=== PATIENT | male | born 1960 | race Caucasian/White ===

== ENCOUNTER 2020-11-24 21:31 | Inpatient (IN) | payer OTHER ==
[~2020-11-24] VITALS: Ht 175.3 cm; Wt 90.7 kg
--- NOTE | 2020-11-24 21:31 | NUR ---
PT AAOX4. AMBULATORY WITH STEADY GAIT. BIBPA FROM [facility] FOR MED CLEARANCE FOR GPS ADMIT; ON 5150 HOLD. COVID SWABBED, AWAITING BLOOD WORK AND URINE LAB RESULTS FOR MED CLEARANCE. PT PLACED IN BED 15 ON MONITOR AND PULSE OX. AWAITING OTHER ORDERS.
--- NOTE | 2020-11-24 21:59 | NUR ---
VINYL FLOORING INSTALLER AT BEDSIDE FOR LABS.
--- NOTE | 2020-11-24 21:59 | NUR ---
URINE COLLECTED, SENT TO LAB.
[2020-11-24 22:09] LABS: BASOPHILS # (AUTO) 0.1 /CMM (0.0-0.2); BASOPHILS % (AUTO) 0.9 % (0.0-2.0); EOSINOPHILS % (AUTO) 2.1 % (0.0-6.0); HEMATOCRIT 44 % (39-51); HEMOGLOBIN 14.7 g/dL (13.5-17.5); LYMPHOCYTES # (AUTO) 2.8 /CMM (0.8-4.8); MEAN CORPUSCULAR HGB CONC 34 g/dl (31.0-36.0); MEAN CORPUSCULAR VOLUME 90 fL (80-96); MONOCYTES # (AUTO) 0.7 /CMM (0.1-1.30); MONOCYTES % (AUTO) 10.3 % (2.0-12.0); NEUTROPHILS % (AUTO) 44.7 % (43.0-81.0); PLATELET COUNT (AUTO) 218 /CMM (150-450); RED BLOOD CELL COUNT(AUTO) 4.84 MIL/uL (4.5-6.0); WHITE BLOOD COUNT (AUTO) 6.7 K/uL (4.3-11.0)
[2020-11-24 22:16] LABS: BILIRUBIN,URINE NEGATIVE (NEGATIVE); COLOR,URINE YELLOW (YELLOW); LEUKOCYTE ESTERASE ,URINE NEGATIVE (NEGATIVE); NITRITE, URINE NEGATIVE (NEGATIVE); PROTEIN,URINE NEGATIVE (NEGATIVE); UGLUCOSE NEGATIVE (NEGATIVE); UROBILINOGEN,URINE 0.2 EU/dL (0.2)
[2020-11-24 22:19] LABS: CALCIUM, SERUM 8.9 mg/dL (8.5-10.1); CARBON DIOXIDE 32 mmol/L (21-32); CHLORIDE 104 mmol/L (98-107); CREATININE 1.1 mg/dL (0.6-1.3); GLUCOSE 114 mg/dL (74-106); POTASSIUM 4.1 mmol/L (3.5-5.1); SODIUM SERUM 139 mmol/L (136-145); UREA NITROGEN, BLOOD 11 mg/dL (7-18)
[2020-11-24 22:24] LABS: ALANINE AMINOTRANSFERASE 30 U/L (12-78); ALBUMIN 2.9 g/dL (3.4-5.0); ALCOHOL, BLOOD < 3 mg/dL (0-0); ALKALINE PHOSPHATASE 150 U/L (46-116); ASPARTATE AMINOTRANSFERASE 23 U/L (15-37); BILIRUBIN,DIRECT 0.1 mg/dL (0.0-0.2); BILIRUBIN,TOTAL 0.2 mg/dL (0.2-1.0); TOTAL PROTEIN, SERUM 6.4 g/dL (6.4-8.2)
[2020-11-24 22:25] LABS: ACETAMINOPHEN 0 ug/ml (10-30)
[2020-11-24] MEDS ORDERED: PHEN100C4 PO (23:11)
--- NOTE | 2020-11-24 23:14 | NUR ---
REPORT GIVEN FAA RN FOR ANGELA; PT WILL BE GOING TO GPS
--- NOTE | 2020-11-24 23:41 | NUR ---
Pt to [facility] via [facility].
[2020-11-25] MEDS ORDERED: ZOLPIDEM TARTRATE 5 MG TABLET PO PRN
[2020-11-25] MEDS ORDERED: MAG HYDROX/AL HYDROX/SIMETH 30 ML UDC PO PRN
[2020-11-25] MEDS ORDERED: ACETAMINOPHEN 325 MG TABLET PO PRN
[2020-11-25] MEDS ORDERED: LORAZEPAM 1 MG TABLET PO PRN
[2020-11-25] MEDS ORDERED: MAGNESIUM HYDROXIDE 30 ML UDC PO PRN
[2020-11-25] MEDS ORDERED: BLOOD SUGAR DIAGNOSTIC 1 EACH STRIP IN ONE (00:30)
[2020-11-25] MEDS ORDERED: BENA20TA9 PO (00:46)
[2020-11-25] MEDS ORDERED: TRAZ-257 PO (00:46)
[2020-11-25] MEDS ORDERED: ARIP20TA4 PO (00:46)
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
[2020-11-25 03:27] VITALS: BP 154/80
[2020-11-25 08:00] VITALS: BP 145/84
[2020-11-25] MEDS: ARIPIPRAZOLE 5 MG TABLET PO SCH (12:03)
[2020-11-25] MEDS: CITALOPRAM HYDROBROMIDE 20 MG TABLET PO SCH (12:03)
[2020-11-25] MEDS ORDERED: DIPH50CA37 MC (12:05)
--- NOTE | 2020-11-25 12:14 | NUR ---
Initial Discharge Plan: Per pt. he is currently experiencing homelessness and would like to be referred to agencies for housing. Patient is agreeable to be discharged to a half-way. SW will continue to collaborate with IDT to ensure safe& proper discharge planning.
[2020-11-25 12:26] LABS: CHOLESTEROL 183 mg/dL (<200); HDL CHOLESTEROL 72 mg/dL (40-60); LDL 92 mg/dL (0-99); TRIGLYCERIDES 112 mg/dL (30-150)
[2020-11-25 16:00] VITALS: BP 152/85
[2020-11-25] MEDS ORDERED: BENAZEPRIL HCL 20 MG TABLET PO SCH (18:00)
[2020-11-25 20:16] VITALS: BP 151/89
[2020-11-25] MEDS: TRAZODONE 50 MG TABLET PO PRN (22:27)
--- NOTE | 2020-11-25 22:28 | NUR ---
GPS RN NOTES: PATIENT REQUESTED FOR SLEEP MEDICATION D/T INSOMNIA. TRAZODONE 50MG, 2TABS/100MG GIVEN PO PRN ORDERED. WILL CONTINUE TO MONITOR.
--- NOTE | 2020-11-26 06:43 | NUR ---
GPS RN CLOSING NOTES: PATIENT IS CURRENTLY SLEEPING. SLEPT 8HOURS THIS SHIFT. NO BEHAVIORAL ISSUES THIS SHIFT. NO S/S OF DISTRESS. RESPIRATION EVEN AND UNLABORED WITH EQUAL RISE AND FALL OF THE CHEST ON ROOM AIR. ALL PATIENT CARE NEEDS HAVE BEEN MET ANTICIPATED. WILL CONTINUE TO MONITOR FOR SAFETY, MOOD AND BEHAVIOR AND ENDORSE TO AM SHIFT.
[2020-11-26 06:59] LABS: BASOPHILS % (AUTO) 0.6 % (0.0-2.0); EOSINOPHILS % (AUTO) 1.7 % (0.0-6.0); HEMATOCRIT 45 % (39-51); HEMOGLOBIN 15.2 g/dL (13.5-17.5); LYMPHOCYTES # (AUTO) 2.3 /CMM (0.8-4.8); LYMPHOCYTES % (AUTO) 36.4 % (20.0-44.0); MEAN CORPUSCULAR HGB CONC 34 g/dl (31.0-36.0); MEAN CORPUSCULAR VOLUME 90 fL (80-96); MONOCYTES # (AUTO) 0.6 /CMM (0.1-1.30); MONOCYTES % (AUTO) 9.6 % (2.0-12.0); NEUTROPHILS # (AUTO) 3.3 /CMM (1.8-8.9); NEUTROPHILS % (AUTO) 51.7 % (43.0-81.0); PLATELET COUNT (AUTO) 222 /CMM (150-450); RED BLOOD CELL COUNT(AUTO) 5.04 MIL/uL (4.5-6.0); WHITE BLOOD COUNT (AUTO) 6.4 K/uL (4.3-11.0)
[2020-11-26 07:34] LABS: CALCIUM, SERUM 9.4 mg/dL (8.5-10.1); CREATININE 0.9 mg/dL (0.6-1.3); POTASSIUM 3.8 mmol/L (3.5-5.1)
[2020-11-26 08:00] VITALS: BP 152/87
[2020-11-26] MEDS ORDERED: PHENYTOIN EXTENDED RELEASE 100 MG CAPSULE PO SCH (09:00)
[2020-11-26] MEDS: ARIPIPRAZOLE 5 MG TABLET PO SCH (10:20)
[2020-11-26] MEDS: CITALOPRAM HYDROBROMIDE 20 MG TABLET PO SCH (10:21)
[2020-11-26 16:00] VITALS: BP 145/75
[2020-11-26] MEDS: PHENYTOIN EXTENDED RELEASE 100 MG CAPSULE PO SCH (17:26)
--- NOTE | 2020-11-26 18:30 | NUR ---
keeps to self and isolative,in rm. most of day.
[2020-11-26 19:55] VITALS: BP 150/83
[2020-11-27] MEDS: TRAZODONE 50 MG TABLET PO PRN (02:26)
--- NOTE | 2020-11-27 06:36 | NUR ---
GPS RN CLOSING NOTES: PATIENT ON BED SLEEPING. SLEPT 8HOURS THIS SHIFT. NO BEHAVIORAL ISSUES THIS SHIFT. NO S/S OF DISTRESS. RESPIRATION EVEN AND UNLABORED WITH EQUAL RISE AND FALL OF THE CHEST ON ROOM AIR. ALL PATIENT CARE NEEDS MET ANTICIPATED. WILL CONTINUE TO MONITOR FOR SAFETY, MOOD AND BEHAVIOR AND ENDORSE TO AM SHIFT.
[2020-11-27 08:00] VITALS: BP 127/80
[2020-11-27] MEDS: CITALOPRAM HYDROBROMIDE 20 MG TABLET PO SCH (09:32)
[2020-11-27] MEDS: ARIPIPRAZOLE 5 MG TABLET PO SCH (09:32)
[2020-11-27] MEDS: PHENYTOIN EXTENDED RELEASE 100 MG CAPSULE PO SCH ×2 (09:32→16:14)
[2020-11-27] MEDS ORDERED: diphenhydrAMINE HCL 50 MG CAPSULE PO PRN (14:00)
[2020-11-27 16:00] VITALS: BP 122/72
[2020-11-27 20:49] VITALS: BP 127/74
--- NOTE | 2020-11-27 21:24 | NUR ---
GPS RN NOTES: PATIENT REQUESTED FOR SLEEP MEDICATION D/T INSOMNIA. BENADRYL 50MG/1CAP GIVEN PO HS ORDERED. WILL CONTINUE TO MONITOR.
--- NOTE | 2020-11-28 06:35 | NUR ---
GPS RN CLOSING NOTES: PATIENT AWAKE, LAYING COMFORTABLY IN BED. WEEKLY SKIN ASSESSMENT DONE, PICTURES TAKEN AND PLACED IN PATIENT CHART, NO NEW SKIN ISSUES AT THIS TIME. SLEPT 8HOURS THIS SHIFT. NO BEHAVIORAL ISSUES THIS SHIFT. NO S/S OF DISTRESS. DENIES ANY PAIN. RESPIRATION EVEN AND UNLABORED WITH EQUAL RISE AND FALL OF THE CHEST ON ROOM AIR. ALL PATIENT CARE NEEDS MET ANTICIPATED. WILL CONTINUE TO MONITOR FOR SAFETY, MOOD AND BEHAVIOR AND ENDORSE TO AM SHIFT.
[2020-11-28 08:00] VITALS: BP 134/83
[2020-11-28] MEDS: CITALOPRAM HYDROBROMIDE 20 MG TABLET PO SCH (08:40)
[2020-11-28] MEDS: ARIPIPRAZOLE 5 MG TABLET PO SCH (08:40)
[2020-11-28] MEDS: PHENYTOIN EXTENDED RELEASE 100 MG CAPSULE PO SCH ×2 (08:40→16:20)
--- NOTE | 2020-11-28 10:08 | NUR ---
Individual Intervention: SW met with the pt at bedside and informed him that the SW would like to discuss his discharge plan. Pt states that he is homeless but he has a contact with [facility] and mentioned a program called [facility]. SW stated that she will speak to the staff about providing him with his phone so that he can make the appropriate calls and provide the SW with the info to follow up as well.
--- NOTE | 2020-11-28 11:08 | NUR ---
UR Note: BRITTANY faxed a clinical to [facility] with attn to nurse case management to the fax number: [phone].
--- NOTE | 2020-11-28 12:09 | NUR ---
Probable Cause Hearing: Pts 5250 hold was upheld for grave disability.
--- NOTE | 2020-11-28 12:49 | NUR ---
RN NOTE: PT REFUSED DILANTIN LEVEL BLOOD DRAW. EDUCATED PT RE IMPORTANCE OF LAB RESULT. PT CONT'D TO REFUSE X 3.
[2020-11-28 16:00] VITALS: BP 130/77
[2020-11-28] MEDS: TRAZODONE 50 MG TABLET PO SCH (21:15)
[2020-11-28 21:29] VITALS: BP 106/68
[2020-11-29 08:00] VITALS: BP 122/70
[2020-11-29] MEDS: ARIPIPRAZOLE 5 MG TABLET PO SCH (08:28)
[2020-11-29] MEDS: PHENYTOIN EXTENDED RELEASE 100 MG CAPSULE PO SCH ×2 (08:28→16:45)
[2020-11-29] MEDS: CITALOPRAM HYDROBROMIDE 20 MG TABLET PO SCH (08:28)
--- NOTE | 2020-11-29 14:38 | NUR ---
UR Note: Sunshine ([phone]), casework supervisor from [facility], called the SW and stated that the pt is authorized through [facility] and stated that the SW should fax the clinicals to them.
[2020-11-29 16:00] VITALS: BP 142/77
[2020-11-29 21:11] VITALS: BP 142/71
[2020-11-29] MEDS: TRAZODONE 50 MG TABLET PO SCH (21:45)
[2020-11-30 08:00] VITALS: BP 149/83
[2020-11-30] MEDS: CITALOPRAM HYDROBROMIDE 20 MG TABLET PO SCH (08:39)
[2020-11-30] MEDS: PHENYTOIN EXTENDED RELEASE 100 MG CAPSULE PO SCH ×2 (08:39→16:33)
[2020-11-30] MEDS: ARIPIPRAZOLE 5 MG TABLET PO SCH (08:39)
--- NOTE | 2020-11-30 08:54 | NUR ---
UR Note: BRITTANY faxed a clinical to [facility] to the fax number: [phone].
[2020-11-30 16:00] VITALS: BP 131/81
[2020-11-30 20:53] VITALS: BP 132/57
[2020-11-30] MEDS: TRAZODONE 50 MG TABLET PO SCH (21:37)
[2020-12-01 08:00] VITALS: BP 112/64
--- NOTE | 2020-12-01 08:40 | NUR ---
[facility]: BRITTANY called the [facility] ([phone]) and spoke to Jake who stated that the SW should pass the same number along to the pt and inform him to conduct an evaluation with their staff. BRITTANY passed the number to the pt and provided him with a phone number to make the call.
[2020-12-01] MEDS: PHENYTOIN EXTENDED RELEASE 100 MG CAPSULE PO SCH ×2 (08:51→16:34)
[2020-12-01] MEDS: ARIPIPRAZOLE 5 MG TABLET PO SCH (08:51)
[2020-12-01] MEDS: CITALOPRAM HYDROBROMIDE 20 MG TABLET PO SCH (08:51)
--- NOTE | 2020-12-01 15:03 | NUR ---
[facility] Rivet MakerSeismograph Operator Helper: BRITTANY received a call from [facility] Rivet Maker, Destin ([phone]), who stated that he wanted to know when the pt is going to be discharged. BRITTANY stated that the pt is going to be discharged as soon as the [facility] can accommodate the pt and the disease case manager rn stated that he will contact the SW when he has an answer.
[2020-12-01 16:00] VITALS: BP 147/93
--- NOTE | 2020-12-01 16:05 | NUR ---
UR Note: Mary ([phone]), oil field caser from [place], called the SW and informed her that she wanted an update on the pts discharge plan. SW informed her about the [facility] and stated that once the bed has a bed and is accepted there the SW will discharge the pt.
--- NOTE | 2020-12-01 16:18 | NUR ---
UR Note: BRITTANY faxed a clinical to [facility] to the fax number: [phone].
[2020-12-01 19:45] VITALS: BP 148/81
[2020-12-01] MEDS: TRAZODONE 50 MG TABLET PO SCH (21:20)
[2020-12-02 08:00] VITALS: BP 119/77
[2020-12-02] MEDS: ARIPIPRAZOLE 5 MG TABLET PO SCH (09:10)
[2020-12-02] MEDS: PHENYTOIN EXTENDED RELEASE 100 MG CAPSULE PO SCH ×2 (09:10→16:05)
[2020-12-02] MEDS: CITALOPRAM HYDROBROMIDE 20 MG TABLET PO SCH (09:11)
--- NOTE | 2020-12-02 11:29 | NUR ---
UR Note: BRITTNAY received a call from Carlitos ([phone]) from [facility] who stated that a peer to peer is being requested for this pt. BRITTANY informed Dr. Rose and he conducted the peer to peer review.
--- NOTE | 2020-12-02 11:43 | NUR ---
Ida Pullman ConductorManager Urology: BRITTANY called Ida Pullman Conductor, Destin ([phone]), and left a voicemail stating that the SW wants an update regarding the pts placement as the insurance company is no longer willing to authorize since the pt is stable.
[2020-12-02 16:00] VITALS: BP 136/88
[2020-12-02 20:19] VITALS: BP 129/67
[2020-12-02] MEDS: TRAZODONE 50 MG TABLET PO SCH (21:15)
[2020-12-03 08:00] VITALS: BP 146/87
[2020-12-03] MEDS: PHENYTOIN EXTENDED RELEASE 100 MG CAPSULE PO SCH ×2 (08:11→16:05)
[2020-12-03] MEDS: ARIPIPRAZOLE 5 MG TABLET PO SCH (08:12)
[2020-12-03] MEDS: CITALOPRAM HYDROBROMIDE 20 MG TABLET PO SCH (08:12)
[2020-12-03 16:00] VITALS: BP 139/96
[2020-12-03 20:22] VITALS: BP 139/76
[2020-12-03] MEDS: TRAZODONE 50 MG TABLET PO SCH (21:04)
--- NOTE | 2020-12-04 02:29 | NUR ---
RN NOTES: ANXIETY PT. C/O FEELING ANXIOUS PACING IN ROOM ATIVAN 1 MG PO PRN GIVEN PER PT. REQUEST ,WILL CONTINUE TO MONITOR.
[2020-12-04 08:00] VITALS: BP 123/71
[2020-12-04] MEDS: CITALOPRAM HYDROBROMIDE 20 MG TABLET PO SCH (08:13)
[2020-12-04] MEDS: ARIPIPRAZOLE 5 MG TABLET PO SCH (08:13)
[2020-12-04] MEDS: PHENYTOIN EXTENDED RELEASE 100 MG CAPSULE PO SCH ×2 (08:13→16:05)
[2020-12-04 16:00] VITALS: BP 130/69
[2020-12-04 20:00] VITALS: BP 140/96
[2020-12-04] MEDS: TRAZODONE 50 MG TABLET PO SCH (21:35)
--- NOTE | 2020-12-05 01:39 | NUR ---
RN note: Patient refused skin assessment.
[2020-12-05 08:00] VITALS: BP 112/75
[2020-12-05] MEDS: ARIPIPRAZOLE 5 MG TABLET PO SCH (08:10)
[2020-12-05] MEDS: PHENYTOIN EXTENDED RELEASE 100 MG CAPSULE PO SCH ×2 (08:10→16:40)
[2020-12-05] MEDS: CITALOPRAM HYDROBROMIDE 20 MG TABLET PO SCH (08:10)
--- NOTE | 2020-12-05 08:52 | NUR ---
[employer] ScoutSow Manager: BRITTANY called Ida [employer] ScoutDestin ([phone]), and left a voicemail stating that the SW wants an update regarding the pts placement.
--- NOTE | 2020-12-05 10:33 | NUR ---
UR Note: SW received a call from Mary ([phone]) from [facility] who stated that the pt is being denied since 12/02/20 and that she is aware that we are trying to admit the pt to [facility]. BRITTANY called back and left her a voicemail stating that the pt is going to be discharged either today or tomorrow depending on the [facility] and that the SW will need aftercare appointments for the pt.
--- NOTE | 2020-12-05 10:37 | NUR ---
Ida Ware CleanerCut Out Machine Operator: BRITTANY called Ida Ware Cleaner, Ricki ([phone]), who stated that the pt can only be accepted to their program on and therefore he will need to "couch surf" for a few days. BRITTANY stated that she will work with the pt.
--- NOTE | 2020-12-05 10:58 | NUR ---
Individual Intervention: SW met with the pt at bedside and discussed that the program will not be able to admit him until . SW informed him that the MD wants the pt to be discharged today if there is an alternate plan and pt stated that he also wanted to be discharged today. Pt stated that he has a hotel voucher and will be able to stay somewhere for a few days until he can be accepted to the program. SW stated that she will facilitate his discharge.
--- NOTE | 2020-12-05 11:32 | NUR ---
Individual Intervention: SW met with the pt in the [place] and informed him that the pt will be discharged once the SW has the aftercare appointments from his insurance company. SW asked the pt where he will be discharged to and the pt stated [facility]. Pt stated that [facility] [place] [facility] and then stop at [place]. Pt stated that he has enough money to stay there until which is when the [facility] will accept him.
--- NOTE | 2020-12-05 15:29 | NUR ---
UR Note: SW received a call from Mary ([phone]) from [facility] and left her a voicemail stating that the SW is waiting for the aftercare appointments.
--- NOTE | 2020-12-05 15:55 | NUR ---
Discharge Note: Pt will be discharged to his own plan of care. Pt states that he is going to be discharged to the [facility] located at [address], [place] [address]; ([phone]). Pt states that he will [facility] [place] and [facility] and then to [place] where he will get off. Pt states that he has enough money for a few days and then he will be admitted to [facility] on . SW confirmed pts acceptance to the [facility]. Pt will be under the care of clinician, Negin ([phone]). Upon discharge, pt presents with calm affect and is mood congruent. Pt appears to be alert and oriented x4 (time, place, self and situation). Pt denies suicidal and homicidal ideation as well as auditory and visual hallucinations. BRITTANY provided patient with the 2019 [facility] list. SW provided patient with a copy of the [facility] homeless directory which provides information on locations for hot meals, sack lunches, food pantries, and showers. SW provided an additional list of mental health clinics: [facility] [address] [place] [address] ([phone]); [facility] [address] [place] [address] ([phone]); a list of medical clinics; [facility] [address], [place]. [place], ; [facility] [address], [address], [place]. BRITTANY Provided [facility] [address] [place] [address]: ([phone]). Patient was provided with a brief substance abuse intervention and referred to the following substance abuse programs: [facility] ([phone]); [facility] [address] [place] [address] ([phone]); [facility] [address] [place] [address]. [place] [address] ([phone]); [facility] ([phone]); [facility] ([phone]); [facility] ([phone]); [facility] ([phone]). Pt was referred to [facility] for psychiatric services located at [address] [place] [address]; ; and a fax of records was sent to: . Pt was also referred to [facility] located at [address] [place] [address]; for medical assistance. Pt signed the homeless waiver and the multidisciplinary exit care form was done, printed, signed, and given to the patient.
--- NOTE | 2020-12-05 16:50 | NUR ---
CHLORINE CELL TENDER NOTE: 60 YEAR OLD MALE DISCHARGED TO HIS OWN PLAN OF CARE. PT TO BE DISCHARGED TO [facility] WHERE PT CONFIRMS HE HAS ENOUGH MONEY TO PAY UNTIL HE IS ADMITTED TO THE [facility] ON SATURDAY. PATIENT IS IN STABLE CONDITION FOR DISCHARGE. PT IS COMPLIANT WITH MEDICATIONS, COOPERATIVE WITH TREATMENT PLANS. PATIENT DENIES SI/HI AND INSTRUCTED TO GO TO THE CLOSEST ER IF DEVELOPING SI/HI. BEHAVIOR IMPROVED, PSYCHIATRIC TREATMENT PLANS MET, MEDICAL TREATMENT PLANS DEFERRED FOR CONTINUAL MONITORING. EDUCATED PT ABOUT AAFTER CARE PLAND AND COPY PROVIDED. RETURNED PERSONAL BELONGINGS TO PATIENT. MEDICATIONS RECONCILED WITH DR HOLLAND AND . PT SIGNED DISCHARGE PAPERWORK. PT LEFT THE UNIT AT 1650 VIA AMBULATION
== END 2020-12-05 16:50 | disposition home or self-care (01) | DRG 885 ==
LOC: ER 21:31 → GPS 23:28
PROVIDERS: ADMIT Psychiatry & Neurology Psychiatry; ATTEND Nurse Practitioner Acute Care
DX: F31.5 Bipolar disorder, current episode depressed, severe, with psychotic features (principal); R45.851 Suicidal ideations; F41.9 Anxiety disorder, unspecified; F29 Unspecified psychosis not due to a substance or known physiological condition; Z79.899 Other long term (current) drug therapy; Z87.891 Personal history of nicotine dependence; G40.909 Epilepsy, unspecified, not intractable, without status epilepticus; I10 Essential (primary) hypertension; Z59.0 Homelessness
CPT/HCPCS: 36415; 80048-TC; 80061-TC; 80076-TC; 80185-TC; 82962-TC; 84443-TC; 85025-TC; 87081-TC; G0480; Q0163